=== PATIENT | female | born 1975 | race Caucasian/White ===

== ENCOUNTER 2023-10-18 09:18 | Emergency (ER) | payer OTHER ==
[2023-10-18 09:30] VITALS: BP 139/86; PULSE 79; RESP 18; TEMP 97.4; BMI 33.4
[2023-10-18 11:11] LABS: BASO % 0.9 % (0-2.0); EOS % 1.7 % (0-4.5); HEMATOCRIT 39.7 % (32.4-45.2); HEMOGLOBIN 13.2 GM/dL (10.7-15.3); LYMPH % 39.4 % (8-40); MCH 29.7 pg (25.7-33.7); MCHC 33.3 g/dl (32.0-36.0); MEAN CELL VOLUME 89.2 fl (80-96); MEAN PLT VOLUME 7.2 fl (7.5-11.1); MONO % 7.4 % (3.8-10.2); NEUT % 50.6 % (42.8-82.8); PLATELET COUNT 360 10^3/uL (134-434); RBC 4.44 M/mm3 (3.60-5.2); RDW 13.5 % (11.6-15.6); WHITE BLOOD COUNT 9.6 K/mm3 (4.0-10.0)
[2023-10-18 11:26] LABS: POTASSIUM 3.7 mmol/L (3.5-5.1)
[2023-10-18 11:27] LABS: CALCIUM 9.4 mg/dL (8.5-10.1)
[2023-10-18 11:29] LABS: ALBUMIN 3.6 g/dl (3.4-5.0); BLOOD UREA NITROGEN 12.8 mg/dL (7-18)
[2023-10-18 11:32] LABS: CREATININE 0.7 mg/dL (0.55-1.3)
[2023-10-18 11:34] LABS: BILIRUBIN,TOTAL 0.5 mg/dL (0.2-1); TOT PROT 7.5 g/dl (6.4-8.2)
== END 2023-10-18 13:40 | disposition home or self-care (01) ==
LOC: JER 09:18
DX: R05.1 Acute cough (principal); R07.9 Chest pain, unspecified; R06.02 Shortness of breath
CPT/HCPCS: 36415; 71046-TC-FY; 71275-TC; 80053; 84484; 85025; 85379; 93005; 93010; 99285-25; Q9967